=== PATIENT | female | born 1940 | race Two or more races ===

== ENCOUNTER 2016-11-18 22:01 | Inpatient (IN) | payer MEDICARE ==
[~2016-11-18] VITALS: Ht 160 cm; Wt 76.7 kg
[2016-11-18] MEDS ORDERED: LYRICA50 MG ORAL (22:09)
[2016-11-18] MEDS ORDERED: METFORMIN HCL1000 M1 ORAL (22:09)
[2016-11-18] MEDS ORDERED: ATORVASTATIN CA20 MG ORAL (22:09)
[2016-11-18] MEDS ORDERED: JANUVIA100 MG ORAL (22:09)
[2016-11-18] MEDS ORDERED: LISINOPRIL20 MG ORAL (22:09)
[2016-11-18 22:20] VITALS: BP 130/73
--- NOTE | 2016-11-18 22:41 | Emergency Room Report ---
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 Denies any fall or trauma denies any chest pain or short of breath denies any other focal weakness Allergies: Coded Allergies: ACETAMINOPHEN (Verified Allergy, Unknown, 11/18/16) HYDROCODONE (Verified Allergy, Unknown, 11/18/16) Patient History Past Medical History: see triage record Pertinent Family History: none Reviewed Nursing Documentation: PMH: Agreed, PSxH: Agreed Nursing Documentation-PMH Hx Cardiac Problems: Yes - HIGH CHOLESTEROL Hx Hypertension: Yes Hx Diabetes: Yes Hx Gastrointestinal Problems: Yes - PANCREATITIS Review of Systems All Other Systems: negative except mentioned in HPI Physical Exam Vital Signs Date Time Temp Pulse Resp B/P Pulse Ox O2 Delivery O2 Flow Rate FiO2 11/18/16 22:02 98.1 77 16 185/73 96 Room Air Sp02 EP Interpretation: reviewed, normal General Appearance: well appearing, no apparent distress Head: normocephalic, atraumatic Eyes: bilateral eye EOMI, bilateral eye PERRL ENT: hearing grossly normal, normal pharynx, TMs + canals normal, uvula midline Neck: full range of motion, supple, no meningismus, no bony tend Respiratory: lungs clear, normal breath sounds, no rhonchi, no respiratory distress, no retraction, no accessory muscle use Cardiovascular #1: normal peripheral pulses, regular rate, rhythm, no edema, no gallop, no JVD, no murmur Gastrointestinal: normal bowel sounds, non tender, soft, no mass, no organomegaly, non-distended, no guarding, no hernia, no pulsatile mass, no rebound Genitourinary: no CVA tenderness Musculoskeletal: normal inspection Neurologic: oriented x3, responsive, bobbin washer III-XII nml as tested, motor strength/ tone normal, sensory intact - However the patient does verbalize any numbness/ tingling sensation in the small finger, patient still has sensation however denies any pain Psychiatric: mood/affect normal Skin: normal color, no rash, warm/dry, palpation normal Lymphatic: normal inspection, no adenopathy Medical Decision Making Diagnostic Impression: Primary Impression: Hypertension Additional Impression: Thrombocythemia ER Course Patient is a fairly complex patient with multiple differential to consideration including but not limited to cardiac cardiopulmonary and vascular emergencies Patient complains appear to be peripheral in nature I do not feel CT imaging of the brain was required Initial baseline blood work shows evidence of thrombocytopenia patient relays that this is not normal for her Given multiple medications and the patient's presentation she is admitted for further evaluation Labs Test 11/18/16 22:38 White Blood Count 7.0 K/UL (4.8-10.8) Red Blood Count 4.16 M/UL (4.20-5.40) Hemoglobin 12.9 G/DL (12.0-16.0) Hematocrit 38.6 % (37.0-47.0) Mean Corpuscular Volume 93 FL (80-99) Mean Corpuscular Hemoglobin 31.0 PG (27.0-31.0) Mean Corpuscular Hemoglobin Concent 33.4 G/DL (32.0-36.0) Red Cell Distribution Width 12.9 % (11.6-14.8) Platelet Count 80 K/UL (150-450) Mean Platelet Volume 12.0 FL (6.5-10.1) Neutrophils (%) (Auto) 75.4 % (45.0-75.0) Lymphocytes (%) (Auto) 15.2 % (20.0-45.0) Monocytes (%) (Auto) 8.0 % (1.0-10.0) Eosinophils (%) (Auto) 1.0 % (0.0-3.0) Basophils (%) (Auto) 0.5 % (0.0-2.0) Prothrombin Time 10.8 SEC (9.30-11.50) Prothromb Time International Ratio 1.0 (0.9-1.1) Activated Partial Thromboplast Time 24 SEC (23-33) Sodium Level 142 mEQ/L (135-145) Potassium Level 4.1 mEQ/L (3.4-4.9) Chloride Level 100 mEQ/L (98-107) Carbon Dioxide Level 27 mEQ/L (20-30) Anion Gap 15 (5-15) Blood Urea Nitrogen 22 mg/dL (7-23) Creatinine 1.4 mg/dL (0.5-0.9) Estimat Glomerular Filtration Rate mL/min (>60) Glucose Level 98 mg/dL (74-106) Calcium Level 10.1 mg/dL (8.6-10.2) Total Bilirubin 0.2 mg/dL (0.0-1.2) Aspartate Amino Transf (AST/SGOT) 18 U/L (5-40) Alanine Aminotransferase (ALT/SGPT) 12 U/L (3-33) Alkaline Phosphatase 30 U/L (35-104) Total Creatine Kinase 51 U/L (26-140) Creatine Kinase MB < 1.5 ng/mL (< 3.8) Creatine Kinase MB Relative Index Troponin I < 0.30 ng/mL (<=0.30) Pro-B-Type Natriuretic Peptide 36 pg/mL (0-450) Total Protein 6.8 g/dL (6.6-8.7) Albumin 4.3 g/dL (3.5-5.2) Globulin 2.5 g/dL Albumin/Globulin Ratio 1.7 (1.0-2.7) Lipase 59 U/L (< 60) Rhythm Strip Diag. Results EP Interpretation: yes Rate: 67 Rhythm: NSR, no PVC's, no ectopy Chest X-Ray Diagnostic Results Chest X-Ray Ordered: Yes # of Views/Limited/Complete: 1 View Interpretation: no consolidation, no effusion, no pneumothorax, no acute cardiopulmonary disease, other - Mediastinum appears abnormal, borderline cardiomegaly Indication: Chest Pain Impression: No acute disease Date Electronically Signed: Nov 19, 2016 Time Electronically Signed: 00:[address] Garcia Last Vital Signs Date Time Temp Pulse Resp B/P Pulse Ox O2 Delivery O2 Flow Rate FiO2 11/18/16 22:02 98.1 77 16 185/73 96 Room Air Status: improved Disposition: ADMITTED INPATIENT Condition: Serious Referrals: NOT CHOSEN IPA/,REFERRING (PCP) MICHEAL GARCIA D.O. Nov 18, 2016 22:41
[2016-11-18 23:00] VITALS: BP 148/62
[2016-11-18 23:04] LABS: MEAN CORPUSCULAR HGB CONC 33.4 G/DL (32.0-36.0); MEAN CORPUSCULAR VOLUME 93 FL (80-99); PLATELET COUNT 80 K/UL (150-450); RED BLOOD COUNT 4.16 M/UL (4.20-5.40); RED CELL DISTRIBUTION WIDTH 12.9 % (11.6-14.8)
[2016-11-18 23:07] LABS: BASOPHILS % (AUTO) 0.5 % (0.0-2.0); LYMPHOCYTES % (AUTO) 15.2 % (20.0-45.0); NEUTROPHILS % (AUTO) 75.4 % (45.0-75.0)
[2016-11-18 23:14] LABS: PROTHROMBIN TIME 10.8 SEC (9.30-11.50)
[2016-11-18 23:22] LABS: TROPONIN I < 0.30 ng/mL (<=0.30)
[2016-11-18 23:25] LABS: ALANINE AMINOTRANSFERASE 12 U/L (3-33); ALBUMIN/GLOBULIN RATIO 1.7 (1.0-2.7); ANION GAP 15 (5-15); ASPARTATE AMINO TRANSFERASE 18 U/L (5-40); CALCIUM 10.1 mg/dL (8.6-10.2); CARBON DIOXIDE 27 mEQ/L (20-30); CHLORIDE 100 mEQ/L (98-107); CREATININE 1.4 mg/dL (0.5-0.9); HEMOLYSIS 5; LIPASE 59 U/L (< 60); POTASSIUM 4.1 mEQ/L (3.4-4.9); SODIUM 142 mEQ/L (135-145); TOTAL PROTEIN 6.8 g/dL (6.6-8.7)
[2016-11-18 23:36] LABS: CKMB < 1.5 ng/mL (< 3.8)
[2016-11-19 01:35] VITALS: BP 143/83
[2016-11-19] MEDS ORDERED: HydrALAZINE 25mg tab ORAL PRN (02:45)
[2016-11-19 04:00] VITALS: BP 117/64
[2016-11-19] MEDS: NovoLOG Insulin Flexpen SUBQ SCH ×3 (06:30→16:30)
[2016-11-19 07:49] VITALS: BP 134/70
[2016-11-19] MEDS ORDERED: Lisinopril 20mg tab ORAL SCH (09:00)
[2016-11-19 11:33] VITALS: BP 150/83
[2016-11-19] MEDS ORDERED: metFORMIN 500mg tab ORAL SCH (11:50)
[2016-11-19 13:21] LABS: MEAN CORPUSCULAR HEMOGLOBIN 29.4 PG (27.0-31.0); MEAN CORPUSCULAR HGB CONC 31.7 G/DL (32.0-36.0); MEAN CORPUSCULAR VOLUME 93 FL (80-99); MEAN PLATELET VOLUME 12.7 FL (6.5-10.1); PLATELET COUNT 99 K/UL (150-450); RED BLOOD COUNT 4.54 M/UL (4.20-5.40); RED CELL DISTRIBUTION WIDTH 12.4 % (11.6-14.8); WHITE BLOOD COUNT 5.2 K/UL (4.8-10.8)
[2016-11-19 13:44] LABS: ANISOCYTOSIS 1+; BAND NEUTROPHILS % (MANUAL) 0 % (0-8); BASOPHILS % (MANUAL) 0 % (0-2); EOSINOPHILS % (MANUAL) 2 % (0-3); LYMPHOCYTES % (MANUAL) 28 % (20-45); NEUTROPHILS % (MANUAL) 62 % (45-75); PLATELET ESTIMATE DECREASED; PLATELET MORPHOLOGY NORMAL; TOTAL CELLS COUNTED 100
--- NOTE | 2016-11-19 13:47 | Diagnostic Imaging Report ---
Indication: Left-sided numbness Technique: spiral acquisitions obtained through the brain. Angled axial and coronal 5 x 5 mm slices were reconstructed. No IV contrast utilized. Radiation dose was minimized using automated exposure control Total dose length product 1439 mGycm. CTDIvol(s) 70 mGy Comparison: none FINDINGS: No acute hemorrhage or edema. No mass effect or midline shift. There is age-related enlargement of the ventricles and extra axial CSF spaces. There is periventricular deep white matter ischemic change. 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 Normal lam-white differentiation. Visualized orbits are unremarkable. Visualized sinuses are unremarkable. Intact calvarium. IMPRESSION: Chronic and age-related changes. Negative for acute intracranial bleed or mass effect The CT scanner at [facility] is accredited by the [employer] and the scans are performed using protocols designed to limit radiation exposure to as low as reasonably achievable to attain images of sufficient resolution adequate for diagnostic evaluation
[2016-11-19 15:24] VITALS: BP 137/95
--- NOTE | 2016-11-19 19:30 | History and Physical Report ---
DATE OF ADMISSION: 11/19/2016 CHIEF COMPLAINT: Left-hand numbness, hypertensive urgency. HISTORY OF PRESENT ILLNESS: The patient is a 76-year-old female who has a history of hypertensive heart disease, was at home and noted her blood pressure was in the 200. She had been taking all of her oral blood pressure medications as ordered and she is unclear why the pressure was so high. She does note that she has been working more often than usual. She denies any chest pain. No headaches. No shortness of breath. On evaluation in the emergency room, initial laboratories were unremarkable. The patient is now admitted for further evaluation and care. PAST MEDICAL HISTORY: As above. PAST SURGICAL HISTORY: None. MEDICATIONS: Current medications reconciled and reviewed. ALLERGIES: Vicodin. SOCIAL HISTORY: Negative for tobacco, ethanol, or drugs. FAMILY HISTORY: Noncontributory. REVIEW OF SYSTEMS: General: No fever or chills. HEENT: No headaches. Cardiopulmonary: No chest pain or shortness of breath. Gastrointestinal: No nausea or vomiting. Genitourinary: No urgency or frequency. Musculoskeletal: No dependent swelling. Neurologic: No evidence of seizures. Positive left pinky numbness. PHYSICAL EXAMINATION: VITAL SIGNS: Current temperature is 98 degrees, pulse 69, and blood pressure 170/64. GENERAL: The patient is well-developed female, in no apparent distress. HEART: Regular rate and rhythm. LUNGS: Clear. ABDOMEN: Soft, nontender, and nondistended. EXTREMITIES: Without clubbing or cyanosis. NEUROLOGIC: The patient's speech is fluent. There is no motor weakness noted. There is only numbness in the left pinky finger. ASSESSMENT: This is a pleasant female, admitted with hypertensive urgency with pinky numbness, unclear etiology. PLAN: Try to continue current blood pressure regimen. We will titrate as needed. CT scan of the brain. Blood pressure stable and CT is negative. The patient likely will be discharged home. Kenneth Lynn M.D. DR: ROXIE JOB#: [id number] CC:
[2016-11-19] MEDS ORDERED: Lyrica 50mg cap ORAL SCH (21:00)
[2016-11-19] MEDS ORDERED: Atorvastatin 20mg tab ORAL SCH (21:00)
--- NOTE | 2016-11-20 05:30 | Consultation ---
DATE OF CONSULTATION: CARDIOLOGY CONSULTATION CONSULTING PHYSICIAN: Marcus Woods M.D. REQUESTING PHYSICIAN: Kenneth Lynn M.D. REASON FOR CONSULTATION: Hypertensive urgency. HISTORY OF PRESENT ILLNESS: This is a 76-year-old female with a history of hypertensive heart disease. She was at home with no distress, no stressors, and compliance with her medication, but noted high blood pressure over 200 systolic. She also noted for the past several days some numbness of her left fifth finger. At an outpatient clinic her blood pressure was reportedly normal. Concerned over these symptoms prompted her to seek attention in the emergency room and hospitalization was subsequently initiated with her blood pressure noted BP 185/73 upon arrival. PAST MEDICAL HISTORY: Includes hyperlipidemia, history of pancreatitis, type 2 diabetes mellitus, and hypertension. MEDICATIONS: Prior to admission, reviewed and reconciled. ALLERGIES: Include hydrocodone/acetaminophen. SOCIAL HISTORY: The patient denies smoking, alcohol, or substance abuse. REVIEW OF SYSTEMS: No fevers or chills. No headaches. No sinus congestion. No recent upper respiratory infection. No leg swelling. No chest pain. 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 No change in bowel habits. No change in urinary output. No history of seizures or strokes. PHYSICAL EXAMINATION: VITAL SIGNS: Vitals as noted blood pressure 185/73, pulse 68, and respirations 18. HEENT: Conjunctivae are pink. Oropharynx clear. NECK: Supple. Jugular venous pressure normal. Carotid upstrokes without delay. LUNGS: Clear. CARDIAC: Regular rhythm and rate. Normal S1 and S2 with a fourth heart sound. ABDOMEN: Soft. EXTREMITIES: No edema. Some numbness noted in the left fifth digit, otherwise nonfocal. LABORATORY AND DIAGNOSTIC DATA: Laboratories are notable for normal chemistry panel with BUN 22 and creatinine 1.4. EKG reveals sinus rhythm with no acute process. Chest x-ray with borderline cardiomegaly. CAT scan of the brain, age-related changes and no acute process. IMPRESSION: 1. Hypertensive urgency. 2. Probable neuropathic etiology for left fifth finger. 3. Sensory deficit. 4. History of type 2 diabetes mellitus. PLAN: 1. Cardiac monitoring. 2. Titrate antihypertensive. 3. Salt restriction stressed; once blood pressure has been stabilized outpatient followup can be arranged to include echocardiogram. Marcus Woods M.D. DR: Kat JOB#: [id number] CC:
--- NOTE | 2016-11-20 07:49 | Discharge Summary ---
Discharge Summary Hospital Course Date of Admission Nov 19, 2016 at 00:05 Date of Discharge Nov 19, 2016 at 17:20 Admitting Diagnosis hypertensive urgency, thrombocytopenia HPI Marry Camejo is a 76 year old female who was admitted on Nov 19, 2016 at 00: 05 for Hypertensive Urgency,Thrombocytopenia Hospital Course dc summary #[id number] Discharge Medications Continued Medications: Atorvastatin Calcium* (Atorvastatin Calcium*) 20 Mg Tablet 20 MG ORAL BEDTIME, TAB Lisinopril (Lisinopril*) 20 Mg Tablet 20 MG ORAL DAILY, TAB Metformin Hcl* (Metformin Hcl*) 1,000 Mg Tablet 1000 MG ORAL DAILY, TAB Pregabalin (Lyrica) 50 Mg Capsule 50 MG ORAL DAILY, CAP Sitagliptin (Januvia) 100 Mg Tablet 100 MG ORAL DAILY, TAB Discharge Condition Upon Discharge: stable Discharge Disposition Patient was discharged to Home () Discharge Diagnoses: Discharge Instructions Discharge Instructions Special Instructions I have been assigned to complete a D/C Summary on this account. I was not involved in the patient management Judi Fox NP ([facility]anchte[place]) Nov 20, 2016 07:49
--- NOTE | 2016-11-20 08:16 | Cardiology Report ---
APPROVED REPORT EKG Measurement Heart [id number] Normal sinus rhythm Low voltage QRS Inferior infarct, age undetermined Cannot rule out Anterior infarct, age undetermined Abnormal ECG
--- NOTE | 2016-11-20 11:16 | Diagnostic Imaging Report ---
Indication: CP Technique: One view of the chest Comparison: none Findings: The heart is enlarged. The lungs and pleural spaces are clear. Impression: Cardiomegaly. No acute process
--- NOTE | 2016-11-20 23:45 | Discharge Summary 2 SIG ---
DATE OF ADMISSION: 11/19/2016 DATE OF DISCHARGE: 11/19/2016 REASON FOR ADMISSION: 76-year-old female with history of hypertensive heart disease, diabetes, high cholesterol presented to emergency room complaining of left fifth finger numbness for the past twoto three days. The patient denied any fall or trauma. At that time, the patient also denied chest pain, shortness of breath, any focal or neurological weakness/deficit. Upon physical examination and laboratory workup, it was found the patient's blood pressure was uncontrolled with 185/73. Also found low platelets of 80,000 and creatinine 1.4. The patient admitted for further management. ADMITTING DIAGNOSES: 1. Hypertensive urgency. 2. Left fifth finger numbness and sensory deficit . 3. Thrombocytopenia. 4. Diabetes. HOSPITAL STAY: The patient admitted to telemetry floor. The patient was in sinus rhythm on monitor. Troponin negative. No acute ischemic changes on ECG. CT of the head revealed no acute intracranial pathology. Cardiology consult was requested. Blood pressure was managed with the routine VEDA inhibitor and hydralazine as needed. Blood pressure was controlled. Home medication were resumed, such as statin, Januvia and metformin. Blood sugar was stable. Patient was counseled on low sodium, , low-fat low-cholesterol diabetic diet. The patient was stable to be discharged home after blood pressure stabilized. Due to the rapid and unexpected improvement in patient's condition, the patient was discharged in one day. DISCHARGE DIAGNOSES: 1. Hypertensive urgency. 2. Thrombocytopenia. 3. Diabetes mellitus type 2 4. Left fifth finger numbness and sensory deficit, likely neuropathic etiology. DISCHARGE MEDICATIONS: See medication reconciliation list. DISCHARGE INSTRUCTIONS: The patient discharged home. Follow up with the primary medical doctor. Recommended outpatient workup for thrombocytopenia. Stressed salt restriction , low-fat low-cholesterol diabetic diet. Kenneth Lynn M.D. I have been assigned to dictate discharge summary on this account and I was not involved in the patient's management. Judi Fox ([facility] CenterEri N.PJohn DR: JAY JOB#: [id number] CC: SUNNY
== END 2016-11-19 17:20 | disposition home or self-care (01) | DRG 305 ==
LOC: EDBD 22:01 → EMR 22:21 → CANBEDREQ 22:39 → 2E 11-19 00:05 → EDBEDREQ 11-19 00:27
DX: I16.0 Hypertensive urgency (principal); D69.6 Thrombocytopenia, unspecified; I11.9 Hypertensive heart disease without heart failure; R20.0 Anesthesia of skin; E11.9 Type 2 diabetes mellitus without complications; G62.9 Polyneuropathy, unspecified; E78.5 Hyperlipidemia, unspecified; Z88.6 Allergy status to analgesic agent
CPT/HCPCS: 36415; 70450; 71010; 80053; 82550; 82553; 82962; 83690; 83880; 84484; 85007; 85025; 85610; 85730; 93005; J1815